=== PATIENT | male | born 1965 | race Caucasian/White ===

== ENCOUNTER 2019-05-31 10:10 | Outpatient (CLI) | payer MEDICARE, SELFPAY | END 2019-05-31 10:11 | disposition home or self-care (01) | PROVIDERS: PCP Internal Medicine; Visit Provider Internal Medicine | DX: R94.6 Abnormal results of thyroid function studies (principal); R79.89 Other specified abnormal findings of blood chemistry | CPT/HCPCS: 36415; 84443 ==

== ENCOUNTER 2020-12-27 09:26 | Outpatient (CLI) | payer MEDICARE, SELFPAY ==
[2020-12-30 13:04] LABS: Testosterone Total 749 ng/dL (250-1100)
== END 2020-12-27 09:27 | disposition home or self-care (01) ==
LOC: ANHWCLAB 09:30
PROVIDERS: PCP Nurse Practitioner Family; Visit Provider Nurse Practitioner Family
DX: E29.1 Testicular hypofunction (principal)
CPT/HCPCS: 36415; 84403

== ENCOUNTER 2021-03-02 10:36 | Outpatient (CLI) | payer MEDICARE, SELFPAY ==
[2021-03-02 12:07] LABS: Hepatitis B Surface Antigen Negative (Negative)
[2021-03-02 12:12] LABS: Hepatitis B Core IgM Result Negative (Negative)
[2021-03-02 12:25] LABS: Hepatitis B Surface Anti Res Negative
== END 2021-03-02 10:37 | disposition home or self-care (01) ==
LOC: ANHLAB 10:44
PROVIDERS: PCP Nurse Practitioner Family
DX: G35 Multiple sclerosis (principal)
CPT/HCPCS: 36415; 86705; 86706; 87340

== ENCOUNTER 2021-05-01 09:07 | Outpatient (CLI) | payer MEDICARE, SELFPAY ==
[2021-05-01 09:49] LABS: Basophils Absolute Auto 0.1 K/mm3 (0.0-0.1); Eosinophils Absolute Auto 0.2 K/mm3 (0-0.3); Eosinophils Percent Auto 3.3 % (0-4.4); Hemoglobin 15.1 g/dL (14.0-18.0); Immature Granulocyte Absolute 0.01 K/mm3 (0.00-0.031); Immature Granulocyte Percent A 0.2 % (0-0.5); Lymphocytes Absolute Auto 1.12 K/mm3 (0.9-3.2); Lymphocytes Percent Auto 21.7 % (18.3-44.2); Mean Corpuscular HGB Conc 33.6 g/dl (32-36); Mean Corpuscular Hemoglobin 30.6 pg (26-34); Mean Corpuscular Volume 91.1 fl (80-100); Monocytes Absolute Auto 0.6 K/mm3 (0.1-0.6); Neutrophils Absolute Auto 3.2 K/mm3 (1.3-6.7); Neutrophils Percent Auto 62.8 % (45.5-73.1); Platelet Count Result 275 k/mm3 (150-375); Red Blood Count 4.94 M/mm3 (4.6-6.20); Red Cell Distribution Width 12.6 % (11.5-14.5); White Blood Count 5.2 K/mm3 (4.5-10.0)
[2021-05-01 10:00] LABS: Alanine Aminotransferase 15 U/L (4-50); Albumin Level 4.4 g/dL (3.5-5.1); Alkaline Phosphatase 86 U/L (38-126); Anion Gap 5 mmol/L (8-16); Aspartate Amino Transferase 22 U/L (17-59); Bilirubin,Total 0.4 mg/dL (0.2-1.3); Blood Urea Nitrogen 17 mg/dL (9-20); Calcium 9.3 mg/dL (8.4-10.2); Carbon Dioxide 33 mmol/L (22-30); Chloride 100 mmol/L (98-107); Cholesterol 221 mg/dL (0-200); Estimated Glomerular Filt Rate 57; Glucose 97 mg/dL (65-110); HDL Direct 49 mg/dL; Potassium 4.2 mmol/L (3.4-5.0); Sodium 138 mmol/L (137-145); Triglycerides 219 mg/dL (<150)
[2021-05-01 10:11] LABS: LDL Cholesterol Direct 108 mg/dL
== END 2021-05-01 09:08 | disposition home or self-care (01) ==
PROVIDERS: PCP Nurse Practitioner Family; Visit Provider Nurse Practitioner Family
DX: E78.5 Hyperlipidemia, unspecified (principal)
CPT/HCPCS: 36415; 80053; 80061; 85025

== ENCOUNTER → 2023-05-07 10:52 | Outpatient (CLI) | payer MEDICARE, SELFPAY ==
--- NOTE | ~2023-05-07 | CT_ITS ---
EXAMINATION: CT chest abdomen pelvis wo con DATE: 05/07/2023 11:12 INDICATION: Fall. Rib pain. Chronic left upper quadrant abdominal pain. TECHNIQUE: Computed tomography (CT) of the chest was performed without intravenous contrast. Automate d exposure control and iterative reconstruction technique were employed. Exam dose: 614.76 mGy-cm to phong exam DLP. COMPARISON: None FINDINGS: Mild scarring, right lower lobe. No pulmonary infiltrate or consolidation or suspicious pul monary mass lesion is noted. No hilar or mediastinal mass lesion or lymphadenopathy. No thoracic aortic aneurysm. Coronary artery calcifications. Normal heart size. No pericardial or pleural effusion. Very small sliding hiatal hernia. Normal morphology of the adrenal glands. There is a pinpoint nonobstructing mid right renal calculus and approximately 5.5 mm nonobstructing m id right renal calculus. Approximately 4.2 mm nonobstructing lower pole left renal calculus. No ureteral calculi or hydroureteronephrosis. The urinary bladder and prostate gland are unremarkable . There is atherosclerotic calcification but normal caliber of the abdominal aorta. No intraperitoneal or retroperitoneal or pelvic mass lesion or adenopathy or ascites is detected. Normal appendix. No bowel obstruction or intraperitoneal free air. Approximately 12 mm wide fat-containing umbilical hernia. Right third through seventh posterolateral healing rib fractures with callus. No suspicious osteolytic or osteoblastic lesions. Moderately severe degenerative disc disease at L5-S 1. IMPRESSION: Healing right third through seventh posterolateral rib fractures Mild bilateral nonobstructive nephrolithiasis Normal appendix Reviewed, dictated and finalized at [facility]. Reviewed, dictated and finalized at [facility]. [employer]
== END ==
PROVIDERS: PCP Family Medicine; Visit Provider Family Medicine
DX: S22.41XD Multiple fractures of ribs, right side, subsequent encounter for fracture with routine healing (principal); N20.0 Calculus of kidney; G89.29 Other chronic pain; W19.XXXD Unspecified fall, subsequent encounter
CPT/HCPCS: 71250; 74176